=== PATIENT | male | born 1970 | race Caucasian/White ===

== ENCOUNTER 2019-07-31 20:02 | Inpatient (IN) | payer BC ==
[~2019-07-31] VITALS: Ht 172.7 cm; Wt 102.1 kg
--- NOTE | 2019-07-31 20:05 | NUR ---
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 PT WITH CONTINUOUS HEAVING/VOMITING. UNABLE TO COMPLETE EKG IN TRIAGE. PT TAKEN TO ROOM W TECH BY WHEELCHAIR FOR EKG TO BE COMPLETED.
--- NOTE | 2019-07-31 20:19 | NUR ---
TECH AT BEDSIDE FOR EKG
[2019-07-31] MEDS ORDERED: OMNIPAQUE 350 MG/ML, 100ML BOTTLE ONE (20:23)
--- NOTE | 2019-07-31 20:24 | NUR ---
pg code cardiac @2021 pg cardiology @2022
[2019-07-31] MEDS ORDERED: LABETALOL 5MG/ML, 20ML ONE (20:25)
[2019-07-31] MEDS ORDERED: ASPIRIN 81 MG TABLET CHEW ONE (20:25)
[2019-07-31] MEDS ORDERED: NITROGLYCERIN SINGLE TAB 0.4 MG SL ONE (20:25)
[2019-07-31] MEDS ORDERED: MORPHINE SULFATE 4 MG/ML, 1ML ONE (20:26)
[2019-07-31] MEDS ORDERED: MORPHINE SULFATE 4 MG/ML, 1ML IVPush PRN ×2 (20:30)
[2019-07-31] MEDS ORDERED: SODIUM CHLORIDE FLUSH 10ML SYR IVF ONE (20:30)
[2019-07-31] MEDS ORDERED: NITROGLYCERIN SINGLE TAB 0.4 MG SL PRN (20:30)
[2019-07-31] MEDS ORDERED: ASPIRIN 81 MG TABLET CHEW PO ONE (20:30)
[2019-07-31] MEDS ORDERED: LABETALOL 5MG/ML, 20ML IVPush ONE (20:30)
--- NOTE | 2019-07-31 20:30 | NUR ---
2 PIV STARTED, PT MEDICATED PER MAR, FLUIDS INFUSING, HOLD NITRO PER MD VERBAL ORDER.
--- NOTE | 2019-07-31 20:35 | NUR ---
PT TO CT PER DR. LINK TO R/O PE.
[2019-07-31 20:38] LABS: MEAN CORPUSCULAR HEMOGLOBIN 28.1 pg (27.5-34.5); MEAN CORPUSCULAR HGB CONC 33.6 g/dL (33.2-36.2); MEAN CORPUSCULAR VOLUME 83.6 fL (81-97); MEAN PLATELET VOLUME 10.6 fL (7.4-10.4); PLATELET COUNT 286 x10^3/uL (130-400); RED BLOOD COUNT 6.01 x10^6/uL (4.38-5.82); RED CELL DISTRIBUTION WIDTH 14.3 % (9.4-14.8)
--- NOTE | 2019-07-31 20:41 | NUR ---
PT TO CT 2033
--- NOTE | 2019-07-31 20:47 | NUR ---
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 PT CONNECTED TO ALL MONITORING
--- NOTE | 2019-07-31 20:48 | NUR ---
DR. GUSMAN AT BEDSIDE. MARYAN ON CLINICAL DATA MANAGER.
[2019-07-31 20:50] LABS: INTERNATIONAL NORMALIZED RATIO 0.92 (0.93-1.1); PROTHROMBIN TIME 9.7 Seconds (9.6-11.5)
[2019-07-31 20:52] LABS: BASOPHILS # (AUTO) 0.09 x10^3/uL (0-0.1); BASOPHILS % (AUTO) 1 % (0-1); EOSINOPHILS # (AUTO) 0.24 x10^3/uL (0-0.4); EOSINOPHILS % (AUTO) 2 % (1-7); LYMPHOCYTES # (AUTO) 4.93 x10^3/uL (1-3.4); LYMPHOCYTES % (AUTO) 38 % (22-44); MD SCAN; MONOCYTES # (AUTO) 1.47 x10^3/uL (0.2-0.8); MONOCYTES % (AUTO) 11 % (2-9); NEUTROPHILS # (AUTO) 6.44 x10^3/uL (1.8-6.8); NEUTROPHILS % (AUTO) 49 % (42-75)
[2019-07-31] MEDS ORDERED: NITROGLYCERIN/D5W PMX 250 ML ONE (20:54)
--- NOTE | 2019-07-31 20:55 | NUR ---
NITRO REQUESTED OF DR. GUSMAN DUE TO CONTINUED HIGH BLOOD PRESSURE. PER DR. GUSMAN, "GO AHEAD AND START NITRO DRIP WITH CURRENT HEART RATE AND BLOOD PRESSURE."
[2019-07-31 20:56] LABS: ALANINE AMINOTRANSFERASE 49 U/L (12-78); ALKALINE PHOSPHATASE 119 U/L (45-117); BILIRUBIN,TOTAL 0.6 mg/dL (0.2-1.0); CREATININE 0.97 mg/dL (0.7-1.3); TOTAL PROTEIN 8.2 g/dL (6.4-8.2)
[2019-07-31] MEDS ORDERED: MIDAZOLAM 1 MG/ML, 5ML ONE (20:58)
[2019-07-31] MEDS ORDERED: NITROGLYCERIN/D5W PMX 250 ML IV PRN ×2 (20:59→21:05)
[2019-07-31] MEDS ORDERED: VERAPAMIL 2.5 MG/ML, 2ML ONE (20:59)
[2019-07-31] MEDS ORDERED: BIVALIRUDIN 250 MG ONE ×2 (20:59→21:45)
[2019-07-31] MEDS ORDERED: FENTANYL PF 100 MCG/2ML ONE (20:59)
[2019-07-31] MEDS ORDERED: HEPARIN 1,000 UNITS/ML, 10ML ONE (20:59)
[2019-07-31] MEDS ORDERED: LIDOCAINE 2%, 20ML ONE (20:59)
[2019-07-31 21:01] LABS: ALBUMIN 4.6 g/dL (3.4-5.0); ANION GAP 7 mmol/L (5-15); CALCIUM 9.2 mg/dL (8.5-10.1); CHLORIDE 106 mmol/L (98-107)
[2019-07-31] MEDS ORDERED: PRASUGREL 10 MG TABLET ONE (21:04)
[2019-07-31 21:07] LABS: TROPONIN I 0.383 ng/mL (0.000-0.045)
[2019-07-31] MEDS ORDERED: ONDANSETRON 2MG/ML, 2ML IVPush PRN (21:30)
[2019-07-31] MEDS ORDERED: NITROGLYCERIN 0.4 MG BOTTLE (25 TABS) SL PRN (21:30)
[2019-07-31] MEDS ORDERED: NITROGLYCERIN 0.4 MG/SPRAY SL PRN (21:30)
[2019-07-31] MEDS ORDERED: ZOLPIDEM 5MG TABLET PO PRN (21:30)
[2019-07-31] MEDS ORDERED: hydrALAzine 20 MG/ML, 1ML IV PRN (21:30)
[2019-07-31] MEDS ORDERED: hydrALAzine 20 MG/ML, 1ML ONE (21:31)
[2019-07-31] MEDS ORDERED: BIVALIRUDIN 250 MG in SODIUM CHLORIDE 0.9% 50 ML IV SCH (22:00)
[2019-07-31 22:13] VITALS: BP 162/102
[2019-07-31] MEDS: SODIUM CHLORIDE 0.9% 1,000 ML IV SCH (22:31)
[2019-07-31] MEDS ORDERED: OFLO5DRO7 RIGHT EAR (23:37)
[2019-07-31] MEDS: morphine SULFATE 10 MG/ML, 1ML IVPush PRN (23:39)
[2019-08-01 03:38] LABS: ANION GAP 9 mmol/L (5-15); CALCIUM 8.6 mg/dL (8.5-10.1); CHLORIDE 109 mmol/L (98-107); CREATININE 0.82 mg/dL (0.7-1.3)
[2019-08-01] MEDS: ASPIRIN 81 MG TABLET CHEW PO SCH (05:27)
[2019-08-01] MEDS: SODIUM CHLORIDE 0.9% 1,000 ML IV SCH ×3 (05:28→20:29)
[2019-08-01] MEDS: METOPROLOL TARTRATE 50 MG TABLET PO SCH ×2 (05:28→17:25)
[2019-08-01] MEDS: morphine SULFATE 10 MG/ML, 1ML IVPush PRN (05:57)
[2019-08-01] MEDS ORDERED: SODIUM CHLORIDE NASAL SPRAY 45ML BOTTLE NAS PRN (06:00)
[2019-08-01] MEDS ORDERED: ENALAPRILAT 1.25 MG/ML, 2ML IV PRN (08:30)
[2019-08-01] MEDS: ACETAMINOPHEN 325 MG TABLET PO PRN ×2 (09:13→17:25)
[2019-08-01] MEDS: PRASUGREL 10 MG TABLET PO SCH (09:13)
[2019-08-01] MEDS: LISINOPRIL 5 MG TABLET PO SCH ×2 (09:14→20:37)
[2019-08-01] MEDS ORDERED: MAGNESIUM SULFATE PMX 2GM/50ML 50 ML IV ONE (13:00)
[2019-08-01 19:26] VITALS: BP 141/83
[2019-08-01] MEDS ORDERED: ATORVASTATIN 80 MG TABLET PO SCH (21:00)
[2019-08-02] MEDS: ACETAMINOPHEN 325 MG TABLET PO PRN (02:43)
[2019-08-02 02:47] VITALS: BP 163/83
[2019-08-02 04:40] LABS: MEAN CORPUSCULAR HEMOGLOBIN 28.1 pg (27.5-34.5); MEAN CORPUSCULAR HGB CONC 33.3 g/dL (33.2-36.2); MEAN CORPUSCULAR VOLUME 84.5 fL (81-97); MEAN PLATELET VOLUME 10.1 fL (7.4-10.4); PLATELET COUNT 235 x10^3/uL (130-400); RED BLOOD COUNT 5.07 x10^6/uL (4.38-5.82); RED CELL DISTRIBUTION WIDTH 14.5 % (9.4-14.8)
[2019-08-02 04:44] LABS: ALANINE AMINOTRANSFERASE 29 U/L (12-78); ALBUMIN 3.6 g/dL (3.4-5.0); ANION GAP 9 mmol/L (5-15); CALCIUM 8.6 mg/dL (8.5-10.1); CHLORIDE 108 mmol/L (98-107); CREATININE 0.86 mg/dL (0.7-1.3)
[2019-08-02 04:46] LABS: ALKALINE PHOSPHATASE 76 U/L (45-117); BILIRUBIN,TOTAL 0.9 mg/dL (0.2-1.0); TOTAL PROTEIN 6.9 g/dL (6.4-8.2)
[2019-08-02] MEDS: SODIUM CHLORIDE 0.9% 1,000 ML IV SCH (05:05)
[2019-08-02] MEDS: METOPROLOL TARTRATE 50 MG TABLET PO SCH (05:08)
[2019-08-02] MEDS: ASPIRIN 81 MG TABLET CHEW PO SCH (05:10)
[2019-08-02 05:37] LABS: BASOPHILS # (AUTO) 0.06 x10^3/uL (0-0.1); BASOPHILS % (AUTO) 0 % (0-1); EOSINOPHILS # (AUTO) 0.15 x10^3/uL (0-0.4); EOSINOPHILS % (AUTO) 1 % (1-7); LYMPHOCYTES # (AUTO) 3.59 x10^3/uL (1-3.4); LYMPHOCYTES % (AUTO) 23 % (22-44); MD SCAN; MONOCYTES # (AUTO) 2.08 x10^3/uL (0.2-0.8); MONOCYTES % (AUTO) 13 % (2-9); NEUTROPHILS # (AUTO) 9.99 x10^3/uL (1.8-6.8); NEUTROPHILS % (AUTO) 63 % (42-75)
[2019-08-02 08:00] VITALS: BP 147/85
[2019-08-02] MEDS ORDERED: OFLOXACIN EAR DROPS 0.3%, 5ML OTIC SCH (09:00)
[2019-08-02] MEDS ORDERED: OFLOXACIN EAR DROPS 0.3%, 5ML RIGHT EAR SCH (09:00)
[2019-08-02] MEDS: LISINOPRIL 5 MG TABLET PO SCH (09:13)
[2019-08-02] MEDS: PRASUGREL 10 MG TABLET PO SCH (09:13)
[2019-08-02] MEDS ORDERED: METO50TA82 PO (09:22)
[2019-08-02] MEDS ORDERED: LISI-167 PO (09:22)
[2019-08-02] MEDS ORDERED: ATOR-2 PO (09:22)
[2019-08-02] MEDS ORDERED: ACET325T26 PO (09:22)
[2019-08-02] MEDS ORDERED: ASPI-515 PO (09:22)
[2019-08-02] MEDS ORDERED: PRAS10TA4 PO (09:22)
[2019-08-02] MEDS ORDERED: NITR0.4T28 SL (09:22)
== END 2019-08-02 13:00 | disposition home or self-care (01) | DRG 246 ==
LOC: ED 20:40 → EDIP 20:51 → CCU 21:54
PROVIDERS: ADMIT Internal Medicine; ATTEND Internal Medicine
PROC: 027034Z Dilation of Coronary Artery, One Artery with Drug-eluting Intraluminal Device, Percutaneous Approach (ICD-10-PCS; principal; 2019-07-31)
PROC: 4A023N7 Measurement of Cardiac Sampling and Pressure, Left Heart, Percutaneous Approach (ICD-10-PCS; 2019-07-31)
PROC: B211YZZ Fluoroscopy of Multiple Coronary Arteries using Other Contrast (ICD-10-PCS; 2019-07-31)
PROC: B215YZZ Fluoroscopy of Left Heart using Other Contrast (ICD-10-PCS; 2019-07-31)
DX: I21.19 ST elevation (STEMI) myocardial infarction involving other coronary artery of inferior wall (principal); I50.33 Acute on chronic diastolic (congestive) heart failure; C90.00 Multiple myeloma not having achieved remission; E78.1 Pure hyperglyceridemia; E78.5 Hyperlipidemia, unspecified; I11.0 Hypertensive heart disease with heart failure; I25.10 Atherosclerotic heart disease of native coronary artery without angina pectoris; K76.0 Fatty (change of) liver, not elsewhere classified; Z87.891 Personal history of nicotine dependence; Z88.1 Allergy status to other antibiotic agents; Z79.899 Other long term (current) drug therapy
CPT/HCPCS: 36415; 93458; 96374; 96375; 99291; J3490; 71045; 71275; 80047; 80048; 80053; 84484; 85025; 85610; 85730; 87081; 93005; 93306; 99156; 99157; C1760; C1894; G0378; J0583; J1644; J2250; J2405; J3010; Q9967; C1725; C1769; C1874; C1887; J0360; J2270; J3475; J7030